=== PATIENT | female | born 1990 | race Asian ===

== ENCOUNTER 2020-03-06 10:24 | Observation (INO) | payer OTHER ==
[~2020-03-06] VITALS: Ht 157.5 cm; Wt 67.1 kg
[2020-03-06 12:01] VITALS: BP 108/74
[2020-03-06] MEDS ORDERED: PNV91TAB8 PO (13:40)
== END 2020-03-06 13:53 | disposition home or self-care (01) ==
LOC: MLD 10:24
PROVIDERS: ADMIT Obstetrics & Gynecology; ATTEND Obstetrics & Gynecology
DX: O62.9 Abnormality of forces of labor, unspecified (principal); Z20.828 Contact with and (suspected) exposure to other viral communicable diseases; Z3A.38 38 weeks gestation of pregnancy
CPT/HCPCS: 59025; 76805; 81000; 87426; G0378; Q0092